=== PATIENT | male | born 1940 | race Caucasian/White ===

== ENCOUNTER 2019-06-29 09:06 | Day surgery (SDC) | payer MEDICARE, BC ==
[2019-06-28 12:53] VITALS: BMI 23.3
[~2019-06-29 09:06] MED LIST: EPINEPHrine 0.3 MG in Ophthalmic Irrigation Solution 500 ML IV SCH; Fentanyl 100 MCG/2 ML VIAL ONE; Midazolam HCl 2 mg/2 ml Vial ONE; Propofol 1,000 MG/100 ML VIAL IV ONE
[2019-06-29] MEDS ORDERED: Phenylephrine 2.5% Ophth Soln 5 ML BOT ONE (09:36)
[2019-06-29] MEDS ORDERED: Cyclopentolate 1% Opth Drop 2 ML BOT ONE (09:36)
--- NOTE | 2019-06-29 12:35 | OP ---
DATE OF PROCEDURE: 06/29/2019 PREOPERATIVE DIAGNOSIS: Vitreous membranes and strands, left eye. POSTOPERATIVE DIAGNOSIS: Vitreous membranes and strands, left eye. PROCEDURE PERFORMED: Pars plana vitrectomy and membrane peel, left eye. ANESTHESIA: Local monitored anesthesia care. COMPLICATIONS: None. DESCRIPTION OF PROCEDURE: The patient identified in the preoperative holding area. Appropriate informed consent for the planned surgical procedure on the left eye had been obtained. The patient was transported to the operative suite. Appropriate cardiopulmonary monitoring was established. Local anesthesia obtained using retrobulbar modified Van Lint lid block using 50:50 mixture of 4% lidocaine and 0.75% bupivacaine. The patient was prepped and draped in usual sterile manner for ophthalmic surgery of left eye. Lid speculum was placed in the left eye. A 25-gauge trocar was placed in conjunctiva and sclera superotemporally, inferotemporally, and supranasally. Infusion line was placed inferotemporally. Light pipe vitreous cutter inserted to the eye. Core vitrectomy was performed. Vitreous membranes were removed and peeled from the retinal surface. Indirect ophthalmoscopy was used to examine the retina 360 degrees. No holes, breaks, or tears were identified. Trocars were removed. The eye was noted to retain pressure well. Retrobulbar Kenalog and subconjunctival Ancef were placed. Antibiotic ointment was placed. Eye was patched and shielded. The patient was taken to postoperative recovery unit in good condition having suffered no immediate perioperative complications. The patient was instructed to keep patch and shield on, avoid lifting or bending, and followup appointment with Dr. Santos. Job ID: [id number]
== END 2019-06-29 13:00 | disposition home or self-care (01) ==
LOC: SDC 09:06
PROVIDERS: ATTEND Ophthalmology Retina Specialist
PROC: 08T53ZZ Resection of Left Vitreous, Percutaneous Approach (ICD-10-PCS; principal; 2019-06-29)
PROC: 08NF3ZZ Release Left Retina, Percutaneous Approach (ICD-10-PCS; 2019-06-29)
DX: H43.312 Vitreous membranes and strands, left eye (principal); E78.5 Hyperlipidemia, unspecified; N40.0 Benign prostatic hyperplasia without lower urinary tract symptoms; Z79.82 Long term (current) use of aspirin; Z79.899 Other long term (current) drug therapy; Z88.6 Allergy status to analgesic agent
CPT/HCPCS: J0171; J2250; J2704; J3010